=== PATIENT | female | born 1970 | race Caucasian/White ===

== ENCOUNTER → 2016-04-02 | Outpatient (CLI) | payer MEDICAID ==
--- NOTE | 2016-04-02 15:44 | MA ---
Screening Digital Mammogram With iCAD Analysis Clinical Indications: 46-year-old female whose sister had breast cancer at age 59. The mammography te chnologist indicated that the patient told her that she has had right breast tenderness for one month along the lateral aspect between the nipple and the axillary region, and will follow up with her shayy batista. She wishes to proceed with routine screening evaluation today. Technique: Standard cephalocaudal projections are obtained. Digital breast tomosynthesis was performe d in the MLO projection with reconstruction at 1.0 mm slice thickness and composite MLO views reconst ructed. This examination is processed by the iCAD computer aided detection system. Comparison: Bilateral digital screening mammography, dated February 21, 2015. Breast Density: Type D: Extremely dense. Findings: CAD was reviewed, and is negative. There is a very dense residual glandular pattern, limiti ng mammographic assessment. There are no new masses, suspicious calcifications, or secondary signs of malignancy seen. There has been no significant change in the appearance of either breast. Impression: Negative mammography. BI-RADS 1. Recommendation: Routine mammographic screening in one year, as long as physical examination is negati ve in this patient with an extremely dense breast parenchyma. Should the patient develop a palpable n odular abnormality in addition to her generalized right-sided mastalgia, targeted sonography could be considered. [facility] will send a result letter to the patient. Negative mammography should not preclude additional workup of a clinically suspicious finding. The patient's information is entered into a reminder system with a target due date for her next mammo gram.
== END ==
LOC: FIMAGING 12:50
DX: Z12.31 Encounter for screening mammogram for malignant neoplasm of breast (principal); Z80.3 Family history of malignant neoplasm of breast
CPT/HCPCS: G0202

== ENCOUNTER 2016-05-22 21:35 | Emergency (ER) | payer MEDICAID ==
[2016-05-22] MEDS ORDERED: TDAP ADULT 0.5 ML INJ (BOOSTRIX) IM ONE (21:53)
--- NOTE | 2016-05-22 22:34 | EDPHY ---
H & P Stated Complaint: L land lac - Personal History LMP (Females 10-55): 1-7 Days Ago Current Tetanus/Diphtheria Vaccine: No Current Tetanus Diphtheria and Acellular Pertussis (TDAP): No - Medical/Surgical History Hx Asthma: No Hx Chronic Respiratory Disease: No Hx Diabetes: No Hx Cardiac Disease: No Hx Renal Disease: No Hx Cirrhosis: No Hx Alcoholism: No Hx HIV/AIDS: No Hx Splenectomy or Spleen Trauma: No Other PMH: denies - Social History Smoking Status: Never smoked HPI/ROS: Chief complaint: Left hand laceration History of present illness: This is a 46-year-old female who presents to the emergency department for evaluation of a left hand laceration. Patient reports earlier this afternoon she was using a butter knife when it slipped and cut her in the webspace next were left ring finger. Minimal bleeding. Minimal pain. Bleeding controlled with a dressing. She denies abnormal coolness or paresthesias in the finger. She states she can still move the finger well. No other trauma reported. She does not believe her tetanus is up-to-date. (Ernst Lofton) - Physical Exam Exam: General: Alert, nontoxic Skin: There is a 1 cm laceration in the webspace just adjacent to the lateral left ring finger inspection does not reveal foreign bodies or deep structure injury. Musculoskeletal: Patient has good range of motion and strength in all cisse all joints all digits of the left hand. Vascular: Capillary refill brisk in all digits of the left hand. Neurologic: Sensation intact using light touch and two-point discrimination all fingers left hand. (Ernst Lofton) Constitutional: Initial Vital Signs Temperature (C) 36.4 C 05/22/16 21:38 Heart Rate 66 05/22/16 21:38 Respiratory Rate 16 05/22/16 21:38 Blood Pressure 130/67 H 05/22/16 21:38 O2 Sat (%) 99 05/22/16 21:38 O2 Delivery Mode Room Air Allergies/Adverse Reactions: No Known Allergies Allergy (Unverified 05/22/16 21:38) Home Medications: Medication Instructions Recorded NK [No Known Home Meds] 05/22/16 Medical Decision Making Procedures: Procedure: Laceration repair. Verbal consent was obtained from the patient. The 1 cm laceration on the left hand was anesthetized in the usual fashion. The wound was irrigated, draped and explored to its base with a gloved finger. There were no deep structures involved. No tendon injury was identified. The wound was repaired with 5 0 Prolene, 3 simple interrupted sutures. The wound repair was simple. The procedure was performed by myself. (Ernst Lofton) ED Course/Re-evaluation: Patient seen under the supervision of my secondary supervising physician Dr. Merced Anaya. Patient presents to the emergency department for a laceration to her left hand. The hand does appear to be neurovascularly intact. She does have good musculoskeletal control. Her tetanus is updated. The wound is anesthetized, cleaned and repaired. It is then dressed. Patient is discharged home. Home care is discussed. She is referred to a hand surgeon for recheck. Return precautions are given. Patient voiced understanding and agreement with plan. (Ernst Lofton) Other Provider: The patient was evaluated and managed by the physician restaurant assistant manager. I have reviewed this chart and I agree with the findings and plan of care as documented , as indicated by my signature. I am the secondary supervising physician. ( Merced Anaya) - Data Points Medications Given: Discontinued Medications Diphtheria/Tetanus/Acell Pertussis (Boostrix) 0.5 ml IM .ONCE ONE Stop: 05/22/16 21:54 Last Admin: 05/22/16 21:57 Dose: 0.5 ml Departure - Departure Disposition: Home, Routine, Self-Care Clinical Impression: Hand laceration Condition: Good Instructions: Care For Your Stitches (ED), Laceration (ED), Acute Wounds (ED) Additional Instructions: Follow-up with a hand doctor for recheck Stitches to be removed in 7 days If symptoms worsen or new symptoms develop return to the emergency department for recheck Referrals: [facility],. [Primary Care Provider] - As per Instructions Anderson Souza MD [Medical Doctor] - As per Instructions
[2016-05-22 23:00] VITALS: BP 105/72; PULSE 58; RESP 20; TEMP 98.1; O2SAT 96
== END 2016-05-22 22:58 | disposition home or self-care (01) ==
PROC: 0HQGXZZ Repair Left Hand Skin, External Approach (ICD-10-PCS; principal; 2016-05-22)
DX: S61.422A Laceration with foreign body of left hand, initial encounter (principal); Z23 Encounter for immunization; W26.0XXA Contact with knife, initial encounter